=== PATIENT | female | born 1985 | race Caucasian/White ===

== ENCOUNTER 2018-10-31 11:25 | Emergency (ER) | payer OTHER ==
[2018-10-31 11:42] VITALS: BP 112/77; PULSE 64; TEMP 98.3; BMI 26.3
[2018-10-31] MEDS ORDERED: IBUPROFEN 400 MG TABLET (FP) PO ONE ×2 (12:06→12:13)
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
== END 2018-10-31 12:20 | disposition home or self-care (01) ==
LOC: FER 11:25
DX: S39.012A Strain of muscle, fascia and tendon of lower back, initial encounter (principal); V43.02XA Car driver injured in collision with other type car in nontraffic accident, initial encounter; Y93.89 Activity, other specified; Y92.410 Unspecified street and highway as the place of occurrence of the external cause
CPT/HCPCS: 99282-25